=== PATIENT | female | born 1960 | race Caucasian/White ===

== ENCOUNTER 2025-06-29 10:18 | Emergency (ER) | payer MEDICARE, SELFPAY ==
[2025-06-29 10:23] VITALS: BP 142/92; PULSE 60; TEMP 37; O2SAT 100; BMI 25.1
--- OUTSIDE RECORDS SUMMARY | 2025-06-29 10:45 | XMS_ITS | Clinical Summary ---
Author Organization [facility] Address [address] [place] [address] Care Team Providers Care Superintendent Recreation Name Role Phone Unavailable Primary Care Provider Unavailabl e Social History Tobacco UseTypesPacks/DayYears UsedDateSmoking Tobacco: Never Assessed CommentsUnknownSex and Gender InformationValueDate RecordedSex Assigned at Not on fileLegal OvjXnzxcr12/15/2023 8:21 PM EDTGender IdentityNot on fileSexual OrientationNot on file Last Filed Vital Signs Vital SignReadingTime TakenCommentsBlood Gzlihurw415/7409 12:00 PM EDT Pulse--Temperature--Respiratory Rate--Oxygen Saturation--Inhaled Oxygen Concentration--Uhazwt95.2 kg (168 lb)05/22/2022 12:00 PM HBXRindwj215.2 cm (5' 7 )05/22/2022 12:00 PM EDTBody Mass Index26.311 12:00 PM EDT Plan of Treatment Not on file Insurance
--- OUTSIDE RECORDS SUMMARY | 2025-06-29 10:45 | XMS_ITS | Clinical Summary ---
Author Organization [facility] Address [id number] [place] [address] Care Team Providers Care Event Operations Manager Name Role Phone Unavailable Primary Care Provider Unavailabl e Social History Tobacco UseTypesPacks/DayYears UsedDateSmoking Tobacco: Never AssessedChildcare AnswerDate EmrsrrsvJuleahhnfSarbklm15/12/2019EmploymentAnswerDate Recorded FsdwxcdzxeNnehmtm43/12/2019CommentsUnknownSex and Gender Information ValueDate RecordedSex Assigned at BirthNot on fileLegal RabVeoqcl64/01/2016 2:06 PM EDTGender IdentityNot on fileSexual OrientationNot on file Plan of Treatment Health MaintenanceDue DateLast DoneCommentsDepression Gygbecydp34/14/1972Tobacco Duxikrgcv85/14/1972Adult BMI Dkrljjsvr96/14/1978DTaP,Tdap and Td Vaccines (1 - Tdap)1979Zoster (Shingles) Vaccine (1 of 2)2010Fall Risk Screening 2025Influenza Crlipyo3704/19/2025RSV ( or age 60+ yrs) (1 - 1-dose 75+ series)2035 Medical Devices Not on file
--- OUTSIDE RECORDS SUMMARY | 2025-06-29 10:45 | XMS_ITS | Clinical Summary ---
Author Organization [facility] Address [address] [place] [address] Phone Care Team Providers Care Dairy Farm Operator Name Role Phone Unavailable Primary Care Provider Unavailabl e Social History Tobacco UseTypesPacks/DayYears UsedDateSmoking Tobacco: Never Assessed CommentsUnknownSex and Gender InformationValueDate RecordedSex Assigned at Not on fileLegal PzmThbosj78/25/2022 8:33 AM ESTGender IdentityNot on fileSexual OrientationNot on file Plan of Treatment Not on file
--- OUTSIDE RECORDS SUMMARY | 2025-06-29 10:45 | XMS_ITS | Clinical Summary ---
Author Organization [facility] Address [address] [facility] [place] [address] Care Team Providers Care Desizing Machine Offbearer Name Role Phone Unavailable Primary Care Provider Unavailabl e Source Comments The following information is NOT included in Care Everywhere downloads:Psychiatric notes, ECG results, Cardiac Rehab notes, Pulmonary Function notes, data from SmartForms (includes but not limited toPregnancy data,audiograms, eye exams, pre-surgical evaluation notes, well-child exam data).[facility] Social History Tobacco UseTypesPacks/DayYears UsedDateSmoking Tobacco: Never Assessed CommentsNoSex and Gender InformationValueDate RecordedSex Assigned at BirthNot on fileLegal QbpPmqffi12/04/2012 11:19 AM ESTGender IdentityNot on fileSexual OrientationNot on file Last Filed Vital Signs Vital SignReadingTime TakenCommentsBlood Alvgbzxu762/66010/01/2001 8:40 AM EST Msvlj841010/01/2001 8:40 AM PJUYmurzmggfpu01.4 ??C (97.6 ??F)10/01/2001 8:40 AM ESTRespiratory Rate--Oxygen Saturation--Inhaled Oxygen Concentration--Gdhmaj01 kg (145 lb 8.1 oz)10/01/2001 8:40 AM APFRosslh332.9 cm (5' 6.5 )10/01/2001 8:40 AM ESTBody Mass Index23.13010/01/2001 8:40 AM EST Plan of Treatment Health MaintenanceDue DateLast TwghRtilzkejEdjnmlnsfif1960Hepatitis C Adkskbzz87/14/1978Tdap Khwmluh0503/01/1978Hepatitis A (HAV) Vaccine (optional start 19+ years)1979Tetanus (Td or Tdap) Xbiemye8003/01/1979Mammography 2000Pap SmearCRC Tjqdvprcm90/14/2005Cholesterol 2005Cologuard (Stool DNA)2005FIT2005Pneumococcal Vaccine(s) (50+ yrs) (1 of 1 - PCV)2010Shingles (RZV) Vaccine (1 of 2)2010 Hepatitis B (HBV) Vaccine (optional start 60+ years)2020Bone Densitometry 2025OVID-19 Vaccine (1 - 2024-26 season)2025Influenza Vaccine (#1) 2025RSV vaccine (adult) (1 - 1-dose 75+ series)2035 Insurance
--- NOTE | 2025-06-29 16:32 | ED.GENADUL1 ---
HPI HPI - General Adult General Chief complaint: Fall Stated complaint: FALL Time Seen by Provider: 06/29/25 11:02 Source: patient Mode of arrival: walk-in History of Present Illness HPI narrative: Patient is a 65-year-old female presenting to the emergency department for concerns of right cheek contusion. Patient tripped and fell in the [employer] parking lot a few hours ago. She is concerned that she may have broken her cheekbone, so she presented to the emergency department for evaluation. She also landed on her right knee, is concerned that she injured it. She still is been able to ambulate without issue since the fall. Other than pain over her right cheek, she denies any other injuries. She has no headache, nausea, or vomiting. She had no loss of consciousness. She is not on blood thinners. She has no changes in her vision or double vision. No neck pain. Related Data Allergies Allergy/AdvReac Type Severity Reaction Status Date / Time No Known Drug Allergies Allergy Verified 06/29/25 10:29 Opioid HPI Opioid Management Most Recent Opioid Data: Last Pain Scale 4 Today, 10:49 Review of Systems ROS Status of ROS 10 or more systems reviewed and unremarkable except as noted in history and below PFSH PFSH Social History Little interest or pleasure in doing things: not at all Feeling down, depressed, or hopeless: not at all Exam Narrative Exam Narrative: CONSTITUTIONAL: Well-appearing, answering questions and following commands appropriately SKIN: Was warm and dry, no abrasions or lacerations. HEAD: Normocephalic, atraumatic, no C-spine tenderness. There is mild tenderness palpation over the right zygoma. There are no overlying abrasions or deformities. EYES: Sclerae white. EOMI. PERRLA. EARS, NOSE, THROAT: Moist oral mucosa. Bite is aligned. No missing or chipped teeth. No nasal septal hematoma. RESPIRATORY: Nonlabored respirations. CARDIOVASCULAR: Normal rate and regular rhythm. There is no S3, S4, murmur, rub. GASTROINTESTINAL: Abdomen is nondistended. MUSCULOSKELETAL: Ambulates with a normal gait. No tenderness to palpation about the right knee joint. Full range of motion of the right knee. NEUROLOGIC: Patient is awake and alert. Facies were symmetrical. Constitutional Vital Signs, click to edit/add: Last Vital Signs Temp 98.6 F 06/29/25 10:23 Pulse 60 06/29/25 10:23 Resp 18 06/29/25 10:23 BP 142/92 H 06/29/25 10:23 Pulse Ox 100 06/29/25 10:23 O2 Del Method Room Air 06/29/25 10:23 Course Vital Signs Vital signs: Vital Signs Temperature 98.6 F 06/29/25 10:23 Pulse Rate 60 06/29/25 10:23 Respiratory Rate 18 06/29/25 10:23 Blood Pressure 142/92 H 06/29/25 10:23 Pulse Oximetry 100 06/29/25 10:23 Oxygen Delivery Method Room Air 06/29/25 10:23 Temperature 98.6 F 06/29/25 10:23 Pulse Rate 60 06/29/25 10:23 Respiratory Rate 18 06/29/25 10:23 Blood Pressure 142/92 H 06/29/25 10:23 Pulse Oximetry 100 06/29/25 10:23 Oxygen Delivery Method Room Air 06/29/25 10:23 Medical Decision Making [facility] Narrative Medical decision making narrative: Patient is a 65-year-old female presented to the emergency department 2 hours after a mechanical fall from a standing height, complaining of right cheek and right knee pain. Her vital signs on arrival are within normal limits. She is afebrile and hemodynamically stable. Clinically, the patient is well-appearing. She does have mild tenderness over the right zygoma/cheek, however she has no deformities or evidence of significant injury. She has no evidence of orbital fracture or ocular entrapment. She has an overall normal physical examination. She is ambulating with a normal gait. I have low concern for significant injury that would require imaging. I do believe the patient is stable for discharge. They were instructed to follow up with her PCP for further care. Return precautions were given including any new or worsening symptoms. Patient understands and agrees to the plan. FINAL IMPRESSION: #Acute right cheek contusion #Acute right knee contusion DISPOSITION: Discharged home CONDITION: Good Discharge Plan Discharge Chief Complaint: Fall Clinical Impression: Contusion of knee, Contusion of face Patient Disposition: Home, Self-Care Time of Disposition Decision: 11:19 Condition: Good Mode of Transportation: Private Vehicle Print Language: Faroese Instructions: Facial Contusion (ED) Referrals: Physician,Non-Staff, [Primary Care Provider] - 1 week Discharge Date/Time: 06/29/25 11:25
== END 2025-06-29 11:25 | disposition home or self-care (01) ==
PROVIDERS: Emergency Provider Student in an Organized Health Care Education/Training Program
DX: S00.83XA Contusion of other part of head, initial encounter (principal); S80.01XA Contusion of right knee, initial encounter; W01.0XXA Fall on same level from slipping, tripping and stumbling without subsequent striking against object, initial encounter; Y93.9 Activity, unspecified; Y92.481 Parking lot as the place of occurrence of the external cause
CPT/HCPCS: 99281